=== PATIENT | female | born 1975 | race Caucasian/White ===

== ENCOUNTER → 2023-09-03 | Outpatient (REF) | LOC: M PLAIMG 12:17 | PROVIDERS: ATTEND Internal Medicine | DX: R52 Pain, unspecified (principal) ==

== ENCOUNTER → 2024-01-31 | Outpatient (CLI) | payer OTHER ==
[~2024-01-31] MED LIST: PROHANCE 279.3MG/ML 15ML VIAL ONE
== END ==
LOC: M PLAIMG 07:59
PROVIDERS: ATTEND Registered Nurse
DX: R92.2 Inconclusive mammogram (principal)
CPT/HCPCS: A9576; C8908